=== PATIENT | male | born 1975 | race Caucasian/White ===

== ENCOUNTER 2019-06-09 21:23 | Emergency (ER) | payer SELFPAY ==
[~2019-06-09] VITALS: Ht 172.7 cm; Wt 90.7 kg
[2019-06-09 21:30] VITALS: BP 170/107
--- NOTE | 2019-06-09 21:30 | NUR ---
PT AMBULATED TO LOBBY.
--- NOTE | 2019-06-09 22:17 | NUR ---
PATIENT LEFT WITHOUT BEING SEEN BY DR. DE LA CRUZ. CALLED X3. NO FURTHER CARE PROVIDED FOR PATIENT.
== END 2019-06-09 22:17 | disposition left against medical advice (07) ==
LOC: MED 21:23
DX: R06.4 Hyperventilation (principal); Z53.21 Procedure and treatment not carried out due to patient leaving prior to being seen by health care provider